=== PATIENT | female | born 1990 | race Caucasian/White ===

== ENCOUNTER 2020-01-18 13:11 | Emergency (ER) | payer BC ==
[~2020-01-18] VITALS: Ht 167.6 cm; Wt 115.0 kg
[~2020-01-18 13:11] MED LIST: DOXY1TAB3 PO; FERR325T16 PO; IBUP-1223 PO; LEVO125T5 PO; LEVO88TA4 PO; ONDA4TAB10 PO; ONDA4TAB7 PO; OXYC-302 PO; PREN1TAB60 PO; SENN-92 PO
[2020-01-18 14:43] LABS: BASOPHILS % (AUTO) 0 % (0-1); EOSINOPHILS % (AUTO) 1 % (1-7); LYMPHOCYTES % (AUTO) 22 % (22-44); MEAN CORPUSCULAR HEMOGLOBIN 26.6 pg (27.0-34.8); MEAN PLATELET VOLUME 9.7 fL (7.4-10.4); MONOCYTES % (AUTO) 7 % (2-9); NEUTROPHILS % (AUTO) 70 % (42-75); PLATELET COUNT 202 x10^3/uL (130-400); RED BLOOD COUNT 4.49 x10^6/uL (3.82-5.3); RED CELL DISTRIBUTION WIDTH 13.9 % (9.6-15.2)
[2020-01-18 14:44] LABS: CALCIUM 8.6 mg/dL (8.5-10.1); CHLORIDE 109 mmol/L (98-107)
[2020-01-18 14:49] LABS: MD NO
--- NOTE | 2020-01-18 14:49 | NUR ---
PT C/O PAIN ON LEFT SHOULDER DOWN ARM AND LEG, PT REPORTS PAIN STARTED LAST NIGHT.
[2020-01-18 14:50] LABS: ALANINE AMINOTRANSFERASE 15 U/L (12-78); ALKALINE PHOSPHATASE 67 U/L (45-117); ANION GAP 4 mmol/L (5-15); BILIRUBIN,TOTAL 0.2 mg/dL (0.2-1.0); CREATININE 0.72 mg/dL (0.55-1.02); TOTAL PROTEIN 7.8 g/dL (6.4-8.2)
--- NOTE | 2020-01-18 15:49 | NUR ---
FHR 140'S.
[2020-01-18 15:54] LABS: MICROSCOPIC INDICATED
[2020-01-18 16:41] VITALS: BP 108/63
== END 2020-01-18 17:12 | disposition home or self-care (01) ==
LOC: ED 16:20
DX: O26.892 Other specified pregnancy related conditions, second trimester (principal); M26.622 Arthralgia of left temporomandibular joint; G56.01 Carpal tunnel syndrome, right upper limb; R11.2 Nausea with vomiting, unspecified; K21.9 Gastro-esophageal reflux disease without esophagitis; Z3A.19 19 weeks gestation of pregnancy
CPT/HCPCS: 36415; 80053; 81001; 85025; 87086; 87106; 93005; 99284

== ENCOUNTER 2020-05-01 16:00 | Outpatient (CLI) | payer BC ==
[~2020-05-01] VITALS: Ht 167.6 cm; Wt 122.0 kg
[~2020-05-01 16:00] MED LIST changes: -OXYC-302 PO; +OXYC1TAB14 PO
[2020-05-01 16:51] LABS: MICROSCOPIC INDICATED
[2020-05-01] MEDS ORDERED: PREN1COM10 PO (17:07)
[2020-05-01] MEDS ORDERED: ONDA4TAB7 PO (17:08)
[2020-05-01] MEDS ORDERED: DOXY1TAB6 PO (17:08)
[2020-05-01] MEDS ORDERED: PREN1TAB PO (17:09)
== END 2020-05-01 17:50 | disposition home or self-care (01) ==
LOC: LDOP 16:00
PROVIDERS: ATTEND Obstetrics & Gynecology
DX: O26.893 Other specified pregnancy related conditions, third trimester (principal); R10.9 Unspecified abdominal pain; Z3A.34 34 weeks gestation of pregnancy
CPT/HCPCS: 59025; 76815; 81001; 84112; 87086

== ENCOUNTER 2020-05-17 09:11 | Outpatient (CLI) | payer BC ==
[~2020-05-17] VITALS: Ht 167.6 cm; Wt 123.2 kg
[~2020-05-17 09:11] MED LIST changes: +DOXY1TAB6 PO; +PREN1COM10 PO; +PREN1TAB PO
[2020-05-17 09:37] VITALS: BP 116/67
[2020-05-17 09:41] LABS: BASOPHILS % (AUTO) 1 % (0-1); EOSINOPHILS % (AUTO) 1 % (1-7); LYMPHOCYTES % (AUTO) 23 % (22-44); MD NO; MEAN CORPUSCULAR HEMOGLOBIN 26.8 pg (27.0-34.8); MEAN CORPUSCULAR HGB CONC 33.9 g/dL (32.4-35.8); MEAN PLATELET VOLUME 9.4 fL (7.4-10.4); MONOCYTES % (AUTO) 8 % (2-9); NEUTROPHILS % (AUTO) 67 % (42-75); PLATELET COUNT 205 x10^3/uL (130-400); RED BLOOD COUNT 4.16 x10^6/uL (3.82-5.3); RED CELL DISTRIBUTION WIDTH 15.3 % (9.6-15.2)
[2020-05-17 09:51] LABS: MICROSCOPIC INDICATED
[2020-05-17 09:54] LABS: ALANINE AMINOTRANSFERASE 16 U/L (12-78); ALBUMIN 2.6 g/dL (3.4-5.0); ANION GAP 9 mmol/L (5-15); CALCIUM 7.9 mg/dL (8.5-10.1); CHLORIDE 110 mmol/L (98-107); CREATININE 0.68 mg/dL (0.55-1.02)
[2020-05-17 09:55] LABS: BILIRUBIN, DIRECT < 0.1 mg/dL (0.1-0.2)
[2020-05-17 09:56] LABS: ALKALINE PHOSPHATASE 116 U/L (45-117); BILIRUBIN,TOTAL 0.2 mg/dL (0.2-1.0)
[2020-05-31] MEDS ORDERED: HYDR-2214 PO (06:52)
== END 2020-05-17 10:30 | disposition home or self-care (01) ==
LOC: LDOP 09:11
PROVIDERS: ATTEND Obstetrics & Gynecology
DX: O13.3 Gestational [pregnancy-induced] hypertension without significant proteinuria, third trimester (principal); Z3A.36 36 weeks gestation of pregnancy
CPT/HCPCS: 36415; 59025; 80053; 81001; 82248; 82570; 84156; 84550; 85025

== ENCOUNTER 2020-05-17 21:18 | Outpatient (CLI) | payer BC ==
[~2020-05-17] VITALS: Ht 167.6 cm; Wt 123.0 kg
[2020-05-17 22:05] VITALS: BP 116/57
== END 2020-05-17 23:14 | disposition home or self-care (01) ==
LOC: LDOP 21:18
PROVIDERS: ATTEND Obstetrics & Gynecology
DX: Z02.9 Encounter for administrative examinations, unspecified (principal)

== ENCOUNTER 2020-05-26 14:38 | Outpatient (CLI) | payer BC ==
[~2020-05-26] VITALS: Ht 167.6 cm; Wt 123.2 kg
[2020-05-26 15:04] VITALS: BP 114/72
[2020-05-26] MEDS ORDERED: ASPI-963 PO (15:31)
[2020-05-26] MEDS ORDERED: ONDA4TAB7 PO (15:32)
[2020-05-26] MEDS ORDERED: ACETAMINOPHEN 325 MG TABLET ONE (16:15)
[2020-05-26] MEDS ORDERED: ACETAMINOPHEN 325 MG TABLET PO STA (16:16)
[2020-05-26 17:02] LABS: MICROSCOPIC INDICATED
[2020-05-26] MEDS ORDERED: ZOLPIDEM 5MG TABLET ONE (17:15)
[2020-05-26] MEDS ORDERED: ZOLPIDEM 5MG TABLET PO SCH (21:00)
== END 2020-05-26 17:17 | disposition home or self-care (01) ==
LOC: LDOP 14:38
PROVIDERS: ATTEND Obstetrics & Gynecology
DX: O26.893 Other specified pregnancy related conditions, third trimester (principal); R10.9 Unspecified abdominal pain; M54.9 Dorsalgia, unspecified; Z3A.37 37 weeks gestation of pregnancy
CPT/HCPCS: 59025; 81001

== ENCOUNTER 2020-05-29 18:32 | Outpatient (CLI) | payer BC ==
[~2020-05-29 18:32] MED LIST changes: +ASPI-963 PO
[2020-05-29 19:02] LABS: MICROSCOPIC INDICATED
[2020-05-29] MEDS ORDERED: ZOLPIDEM 5MG TABLET ONE (21:46)
[2020-05-29] MEDS ORDERED: ZOLPIDEM 10MG TABLET PO PRN (22:00)
== END 2020-05-29 21:55 | disposition home or self-care (01) ==
LOC: LDOP 18:32
PROVIDERS: ATTEND Obstetrics & Gynecology
DX: O98.513 Other viral diseases complicating pregnancy, third trimester (principal); O26.893 Other specified pregnancy related conditions, third trimester; R10.9 Unspecified abdominal pain; Z3A.38 38 weeks gestation of pregnancy
CPT/HCPCS: 59025; 81001; 87635; 89060; Q0114

== ENCOUNTER 2020-05-30 00:41 | Inpatient (IN) | payer BC ==
[~2020-05-30] VITALS: Ht 167.6 cm; Wt 123.6 kg
[2020-05-30] MEDS ORDERED: NEWBORN KIT ONE (01:12)
[2020-05-30] MEDS ORDERED: OXYTOCIN 30U/ 0.9% NaCL 500ML 500 ML ONE (01:12)
[2020-05-30] MEDS ORDERED: LIDOCAINE 1%, 20ML ONE (01:12)
[2020-05-30] MEDS ORDERED: MISOPROSTOL 200 MCG TABLET ONE (01:12)
[2020-05-30] MEDS ORDERED: BUPIVACAINE 0.25% ONE (01:16)
[2020-05-30] MEDS ORDERED: TERBUTALINE 1 MG/ML, 1ML SQ PRN (01:30)
[2020-05-30] MEDS ORDERED: FENTANYL PF 100 MCG/2ML IVPush PRN (01:30)
[2020-05-30] MEDS ORDERED: NALOXONE 0.4 MG/ML, 1ML IVPush PRN (01:30)
[2020-05-30] MEDS ORDERED: EPHEDRINE 50 MG/ML, 1ML IVPush PRN (01:30)
[2020-05-30] MEDS ORDERED: LACTATED RINGERS 1,000 ML IVBOLUS PRN (01:30)
[2020-05-30] MEDS: LACTATED RINGERS 1,000 ML IV SCH ×2 (01:30→10:15)
[2020-05-30] MEDS ORDERED: DIPHENHYDRAMINE 50 MG/ML, 1ML IVPush PRN (01:30)
[2020-05-30] MEDS ORDERED: FENTANYL PF 100 MCG/2ML IV PRN (01:30)
[2020-05-30] MEDS ORDERED: ONDANSETRON 2MG/ML, 2ML IVPush PRN ×2 (01:30)
[2020-05-30] MEDS ORDERED: TERBUTALINE 1 MG/ML, 1ML IVPush PRN (01:30)
[2020-05-30] MEDS ORDERED: FENTANYL/BUPIV./NS/PF 250 ML EPIDCONT SCH (01:30)
[2020-05-30] MEDS ORDERED: OXYTOCIN 30U/ 0.9% NaCL 500ML 500 ML IV ONE (01:30)
[2020-05-30 01:35] LABS: BASOPHILS % (AUTO) 1 % (0-1); EOSINOPHILS % (AUTO) 0 % (1-7); LYMPHOCYTES % (AUTO) 8 % (22-44); MEAN CORPUSCULAR HEMOGLOBIN 26.2 pg (27.0-34.8); MEAN PLATELET VOLUME 9.4 fL (7.4-10.4); MONOCYTES % (AUTO) 6 % (2-9); NEUTROPHILS % (AUTO) 85 % (42-75); PLATELET COUNT 194 x10^3/uL (130-400); RED BLOOD COUNT 4.26 x10^6/uL (3.82-5.3); RED CELL DISTRIBUTION WIDTH 15.3 % (9.6-15.2)
[2020-05-30 01:36] LABS: MD NO
[2020-05-30] MEDS ORDERED: MAGNESIUM HYDROXIDE 8%, 30ML UDC PO PRN (04:30)
[2020-05-30] MEDS ORDERED: MEASLES,MUMPS&RUBELLA VACC/PF 0.5 ML SQ-VACC PRN (04:30)
[2020-05-30] MEDS ORDERED: RHOGAM FROM BLOOD BANK 1 NOTE EA IM/IV ONE (04:30)
[2020-05-30] MEDS: OXYTOCIN 30U/ 0.9% NaCL 500ML 500 ML IV SCH ×2 (04:30→14:30)
[2020-05-30] MEDS ORDERED: ACETAMINOPHEN 325 MG TABLET PO PRN ×3 (04:30→05:00)
[2020-05-30] MEDS ORDERED: MISOPROSTOL 200 MCG TABLET PR PRN (04:30)
[2020-05-30] MEDS ORDERED: HYDROcodone/APAP 5/325 TABLET PO PRN (04:30)
[2020-05-30] MEDS ORDERED: CEFAZOLIN PMX 2GM/50ML 50 ML IVPB ONE (05:30)
[2020-05-30 08:00] VITALS: BP 130/82
[2020-05-30] MEDS: LEVOTHYROXINE 200 MCG TABLET PO SCH (08:00)
[2020-05-30] MEDS: PRENATAL VIT/IRON/FA 1 EACH TABLET PO SCH (09:00)
[2020-05-30] MEDS: IBUPROFEN 600 MG TABLET PO PRN ×2 (09:13→18:45)
[2020-05-30 12:06] LABS: BASOPHILS % (AUTO) 0 % (0-1); EOSINOPHILS % (AUTO) 0 % (1-7); LYMPHOCYTES % (AUTO) 8 % (22-44); MEAN CORPUSCULAR HEMOGLOBIN 26.2 pg (27.0-34.8); MEAN CORPUSCULAR HGB CONC 33.1 g/dL (32.4-35.8); MONOCYTES % (AUTO) 7 % (2-9); NEUTROPHILS % (AUTO) 85 % (42-75); PLATELET COUNT 179 x10^3/uL (130-400); RED BLOOD COUNT 3.85 x10^6/uL (3.82-5.3); RED CELL DISTRIBUTION WIDTH 15.2 % (9.6-15.2)
[2020-05-30 12:09] LABS: MD NO
[2020-05-30 13:00] VITALS: BP 124/80
[2020-05-30] MEDS: HYDROcodone/APAP 5/325 TABLET PO PRN ×2 (13:00→18:46)
[2020-05-30 16:00] VITALS: BP 120/78
[2020-05-30 19:30] VITALS: BP 113/80
[2020-05-31] VITALS: BP 116/78
[2020-05-31] MEDS: OXYTOCIN 30U/ 0.9% NaCL 500ML 500 ML IV SCH ×2 (00:30→10:30)
[2020-05-31] MEDS: IBUPROFEN 600 MG TABLET PO PRN ×3 (00:34→14:44)
[2020-05-31] MEDS: HYDROcodone/APAP 5/325 TABLET PO PRN ×3 (00:34→14:45)
[2020-05-31] MEDS: DOCUSATE 100 MG CAPSULE PO PRN ×2 (00:35→08:08)
[2020-05-31 03:45] VITALS: BP 112/74
[2020-05-31] MEDS: LEVOTHYROXINE 200 MCG TABLET PO SCH (06:13)
[2020-05-31] MEDS ORDERED: DOCU-131 PO (06:52)
[2020-05-31] MEDS ORDERED: IBUP-1222 PO (06:52)
[2020-05-31] MEDS ORDERED: HYDR-1067 PO (06:52)
[2020-05-31] MEDS: PRENATAL VIT/IRON/FA 1 EACH TABLET PO SCH (08:08)
== END 2020-05-31 15:40 | disposition home or self-care (01) | DRG 807 ==
LOC: LDIP 00:41 → 2NW 07:20
PROVIDERS: ADMIT Obstetrics & Gynecology; ATTEND Obstetrics & Gynecology
PROC: 10E0XZZ Delivery of Products of Conception, External Approach (ICD-10-PCS; principal; 2020-05-30)
PROC: 0KQM0ZZ Repair Perineum Muscle, Open Approach (ICD-10-PCS; 2020-05-30)
PROC: 10907ZC Drainage of Amniotic Fluid, Therapeutic from Products of Conception, Via Natural or Artificial Opening (ICD-10-PCS; 2020-05-30)
DX: O16.4 Unspecified maternal hypertension, complicating childbirth (principal); Z37.0 Single live birth; O99.284 Endocrine, nutritional and metabolic diseases complicating childbirth; Z3A.38 38 weeks gestation of pregnancy; O70.1 Second degree perineal laceration during delivery; E03.9 Hypothyroidism, unspecified
CPT/HCPCS: 36415; J3490; 83605; 85025; 86592; 86850; 86900; G0378; J0690; J2405; J2590; J3010; J7120